=== PATIENT | male | born 1995 | race Caucasian/White ===

== ENCOUNTER 2021-02-16 06:49 | Observation (INO) ==
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
[~2021-02-16 06:49] MED LIST: ACETAMINOPHEN 500 MG TAB PO SCH; BUPIVACAINE 0.5 % 5 MG/1 ML PF 10ML VIAL ONE; FAMOTIDINE 20 MG TAB PO SCH; GABAPENTIN 900 MG DOSE PO SCH; LR 500ML BOLUS, THEN 15ML/HR IV SCH; LR 60ML/HR IV SCH; Scopolamine 1 MG TDSY TD SCH; TRANEXAMIC ACID 1,000 MG **IV Pre-op IV SCH
[2021-02-16] MEDS ORDERED: MIDAZOLAM HCL 1 MG/ML 2ML VIAL ONE (07:29)
[2021-02-16] MEDS ORDERED: PROPOFOL IV EMULSION 10 MG/ML 20 ML VIAL IV ONE ×3 (07:29→10:02)
[2021-02-16] MEDS ORDERED: MoRPHine SULFATE PF 1 MG/ML 10 ML AMP/VIAL ONE (07:29)
[2021-02-16 07:45] LABS: Partial Thromboplastin Time 27.6 Seconds (21.0-31.0)
--- NOTE | 2021-02-16 08:32 | History & Physical Bridge Note ---
Date of Service February 16, 2021 History & Physical Bridge Note I have examined the patient, reviewed the History & Physical and in the interval since the performance of the History & Physical I have noted the following changes of clinical significance: no changes noted
[2021-02-16] MEDS ORDERED: NALOXONE HCL 0.08 MG in SYRINGE 1.8 ML IV PRN (08:35)
[2021-02-16] MEDS ORDERED: PROMETHAZINE HCL 25 MG in SODIUM CHLORIDE 0.9% 50 ML IV PRN (08:35)
[2021-02-16] MEDS ORDERED: diphenhydrAMINE 50 MG/ML VIAL IV PRN (08:35)
[2021-02-16] MEDS ORDERED: HYDROmorphone INJ 0.5 MG/0.5 ML SYR IV PRN (08:35)
[2021-02-16] MEDS ORDERED: LACTATED RINGER'S 500 ML IV PRN (08:35)
[2021-02-16] MEDS ORDERED: NALOXONE HCL 0.4 MG/1 ML VIAL/CARP IV PRN ×2 (08:35→11:11)
[2021-02-16] MEDS ORDERED: NALOXONE HCL 1 MG in SODIUM CHLORIDE 0.9% 1000ML 1,000 ML IV PRN (08:35)
[2021-02-16] MEDS ORDERED: NALBUPHINE HCL INJ 10 MG/ML AMP IV PRN (08:35)
[2021-02-16] MEDS ORDERED: ONDANSETRON INJ 2 MG/ML 2 ML VIAL IV PRN ×2 (08:35→11:11)
[2021-02-16] MEDS ORDERED: MoRPHine SULFATE PF 1 MG/ML 10 ML AMP/VIAL INT SPINAL ONE (08:35)
[2021-02-16] MEDS ORDERED: ePHEDrine sulfate 50 MG/ML AMP IV PRN (08:35)
[2021-02-16] MEDS ORDERED: BUPIVACAINE/EPINEPHRINE 0.5% MPF 1:200,000 30 ML VIAL ONE (08:36)
[2021-02-16] MEDS ORDERED: SODIUM CHLORIDE 0.9% 1000ML 1,000 ML IV SCH ×2 (08:45→11:11)
[2021-02-16] MEDS ORDERED: NO NARCOTICS OR SEDATIVES SCH (08:45)
[2021-02-16] MEDS ORDERED: DC INTRASPINAL MORPHINE SCH (08:45)
[2021-02-16] MEDS ORDERED: ONDANSETRON INJ 2 MG/ML 2 ML VIAL ONE (09:21)
[2021-02-16] MEDS ORDERED: GLYCOPYRROLATE 0.2 MG/ML VIAL ONE (09:21)
--- NOTE | 2021-02-16 10:39 | Operative Report ---
Post Operative Report Pre & Post Diagnosis Operation Date: 02/16/21 08:50 Pre-Op Diagnosis: Right Hip Avascular Necrosis Post-Op Diagnosis: Right Hip Avascular Necrosis I identified the patient and participated in the time-out.: Yes Procedure Operation Date: 02/16/21 08:50 Actual Procedures p Right Total Hip Replacement--Uncemented(Right) - Abimael Fitch MD Surgeon Abimael Fitch MD Bailer Tenders Supervisor IRAIDA Taylor Estimated Blood Loss 300 Findings Consistent with Post-Op Diagnosis Operative findings revealed a large segment of vas necrosis of femoral head with collapse. There are subchondral fracture. Articular surface otherwise look pretty good. Moderate-sized joint effusion. Fluids 1300 cc. Specimens Right femoral head sent for pathology. Drains None Anesthesia Type Spinal MAC Complications none Disposition Accompanied Patient To Recovery: Yes Disposition: Recovery Room Indications Patient is a 26-year-old gentleman has had a several history of a increasing bilateral hip pain discomfort. He had known avascular necrosis likely related to some previous steroid use for medical reasons. He was doing fairly well for a while but over the past 6 months developed markedly increased pain discomfort right hip greater than left. X-rays show progressive collapse of the femoral head. He elected proceed with surgical treatment. Description of Procedure Operative implants consist of: 1 Biomet G7 size 52 mm acetabular shell. 2. Biomet size 6.5 cancellous acetabular screws 135 mm length and 1 of 30 mm length. 3. [place] hole warehouse logistics coordinator. 4. Highly cross-linked polyethylene liner with a 52 mm outer diameter and 36 mm inner diameter. 5. Kelly Corail size 10 KLA femoral stem. 6. +5/36 mm ceramic articular ball. The patient was taken to the operating, identified, placed on the operating table supine position protectors were properly padded. IV antibiotics tried by anesthesia team. Spinal anesthetic had been implemented holding area. James catheter was placed in sterile fashion. Patient then placed in the left lateral cubitus position. Next a roll was placed. A Stulberg hip positioner was used for positioning. The right hip and leg were then prepped and draped in usual sterile fashion. A posterior lateral approach to the right hip was then performed to a curvilinear incision centered over the greater trochanter. Sharp dissection carried through subcutaneous tissue down to level the IT band gluteal fascia the IT band gluteal fascia then incised longitudinally in line with skin incision. The underlying greater bursa was excised. The piriformis and external rotators were tagged and taken off the posterior aspect hip joint capsule. Great care was taken throughout the procedure protect the sciatic nerve at all times. The posterior capsulotomy was then performed leaving a large flap for later repair. Hip was internally rotated and dislocated. A femoral neck osteotomy cut was made with Final Cut 14 mm above the lesser trochanter. The head was removed and sent for pathology. The femur was retracted anteriorly. Attention drawn the acetabulum. The acetabular labrum was excised with the pulmonary fat was excised. Sequential reaming the acetabular was then performed again with size 43 and progressing up to a 51. I did reamed a little bit with a 52 reamer. A 52 mm Biomet G7 acetabular shell was then placed in about 40 degrees lateral opening and 20 degrees of anteversion. Was fixed with two 6.5 cancellous acetabular screws. Trial liner was placed. Attention drawn the femur. The proximal femur was entered with a cookie-cutter followed by canal finder. I then broached the femur beginning with size 8 and progressing up to 10. He had a very excellent cancellous bone bed so I elected not to broach any more. Likely could have a place as a slightly larger implant but felt it was likely fraught with difficulty due to his very supportive cancellous bone structure. Calcar reamer was then used to smooth off the calcar. Then trialed the hip and the +5 articular ball seem to fit most appropriately. Soft tissue tension was still just a little bit lax., But leg lengths seemed appropriate and may be little bit long on the side. I elect to place these implants. It was fully stable full extension and external rotation flexion to 9 degrees internal rotation over 50 degrees. All trial implants were removed. An apex hole warehouse logistics coordinator was placed. Highly cross-linked polyethylene liner was placed. A DePuy size 10 KLA femoral stem was impacted in position. +5/36 mm ceramic articular ball was placed. Hip was located once again found to be stable. Attention drawn toward closing. The wound was irrigated scope soft pulsatile lavage solution. We did inject locally with 50 cc of half percent Marcaine with epinephrine. The posterior capsule and external rotators then repaired through drill holes in the posterior trochanter as a single layer. The IT band gluteal fascia then closed with #1 PDS suture running fashion for subcutaneous tissue then closed with 2 layers the deep layer #1 Vicryl suture subcutaneous tissue with 2-0 Dexon suture in a buried interrupted fashion. Skin was closed skin lanette. Leg was then cleaned and dried and sterile dressing was Xeroform, 4 x 4's, ABD pad, foam tape was applied. Patient then transferred to the recovery room in stable condition. Patient tolerated procedure well and there were no complications. Kelton Taylor, my physician assistant broker, was present for the entire procedure. His assistance was essential and required for appropriate patient positioning, prepping and draping, surgical exposure, performing the technical details of the operation, placement the implants, closure of the wound, and placement of the sterile bandage. I attest to the content of the Intraoperative Record and any orders documented therein. Any exceptions are noted below.
--- NOTE | 2021-02-16 10:57 | XRay Report ---
XR hip 1V RT w pelvis HISTORY: 26 years-old Male IN PACU - A/P PELVIS and LATERAL HIP right hip total joint arthroplasty COMPARISON: Pelvis and hip radiographs 02/08/2021 TECHNIQUE: AP view of the pelvis with crosstable lateral view of the right hip FINDINGS: Right hip total joint arthroplasty. No acute fracture, malalignment or unexpected opaque foreign body . Lateral skin lanette with expected postoperative soft tissue swelling and deep tissue air. IMPRESSION: Right hip total joint arthroplasty with expected postoperative changes. ACT 112: Negative or not required by law. The above report was generated using voice recognition software. It may contain grammatical, syntax o r spelling errors. Electronically signed by: Mark Orosco M.D. 02/16/2021 10:56 AM
[2021-02-16] MEDS ORDERED: TAMSULOSIN HCL 0.4 MG CAP PO PRN (11:11)
[2021-02-16] MEDS ORDERED: MAGNESIUM HYDROXIDE SUSP 30 ML UDC PO PRN (11:11)
[2021-02-16] MEDS ORDERED: bisacodyL 10 MG SUPP PR PRN (11:11)
[2021-02-16] MEDS ORDERED: ALUMINUM/MAGNESIUM SUSP 30 ML UDC PO PRN (11:11)
[2021-02-16] MEDS ORDERED: ACETAMINOPHEN 325 MG TAB PO PRN (11:11)
[2021-02-16] MEDS ORDERED: ALBUTEROL HFA 8 GM INHALER INH PRN (11:22)
--- NOTE | 2021-02-16 11:39 | Anesthesiology Progress Note ---
Date of Service February 16, 2021 Anesthesia Post Procedure Vital Signs Vital Signs: Temp Pulse Pulse Resp BP BP Pulse Ox 02/16/21 11:16 16 100 02/16/21 11:11 37.0 C 68 20 120/76 99 02/16/21 10:55 36.7 C 84 17 131/65 93 02/16/21 10:45 91 H 21 113/72 91 02/16/21 10:35 93 H 15 113/68 96 02/16/21 10:25 36.4 C L 92 H 16 134/50 L 100 02/16/21 07:22 37.2 C 94 H 20 143/83 H 100 Pain Intensity Left Hip: Pain Intensity: 6 Transfer of Care Handoff Completed per policy Notes Mental Status: alert / awake / arousable and participated in evaluation Patient Amnestic to Procedure: Yes Nausea / Vomiting: adequately controlled Pain: adequately controlled Airway Patency, RR, SpO2: stable & adequate BP & HR: stable & adequate Hydration State: stable & adequate Anesthetic Complications: no major complications apparent and Pt Satisfied with anesthetic care
[2021-02-16] MEDS: KETOROLAC 30 MG/ML VIAL IV SCH ×2 (13:33→16:43)
[2021-02-16] MEDS ORDERED: TRANEXAMIC ACID / 0.7% NACL 1,000 MG/100 ML BAG IV SCH (16:29)
[2021-02-16] MEDS: ASCORBIC ACID 500 MG TAB PO SCH (16:40)
[2021-02-16] MEDS: Scopolamine CHECK PATCH PLACEMENT SCH (16:43)
[2021-02-16] MEDS: ceFAZolin 2000MG 2,000 MG/15 ML SYR IV SCH (16:43)
[2021-02-16] MEDS: DOCUSATE SODIUM 100 MG CAP PO SCH (19:28)
[2021-02-16] MEDS: ASPIRIN 81 MG ECTAB PO SCH (19:28)
[2021-02-16] MEDS ORDERED: SENNA 8.6 MG TAB PO SCH (21:00)
[2021-02-17] MEDS: ceFAZolin 2000MG 2,000 MG/15 ML SYR IV SCH (00:44)
[2021-02-17] MEDS: KETOROLAC 30 MG/ML VIAL IV SCH ×3 (00:44→12:38)
[2021-02-17] MEDS: Scopolamine CHECK PATCH PLACEMENT SCH ×2 (00:44→08:07)
[2021-02-17] MEDS ORDERED: HYDROmorphone INJ 0.5 MG/0.5 ML SYR IV PRN (02:35)
[2021-02-17] MEDS ORDERED: traMADol HCL 50 MG TABLET PO PRN (02:35)
[2021-02-17] MEDS ORDERED: METOCLOPRAMIDE HCL INJ 5 MG/ML 2 ML VIAL IV PRN (02:35)
[2021-02-17] MEDS ORDERED: diphenhydrAMINE Capsule 25 MG CAP PO PRN (02:35)
[2021-02-17 05:37] LABS: Basophils # (auto) 0.02 K/uL (0-0.2); Basophils % (auto) 0.2 %; Eosinophils # (auto) 0.14 K/uL (0-0.5); Eosinophils % (auto) 1.1 %; Hemoglobin 12.5 g/dL (14.0-18.0); Immature Granulocytes # (auto) 0.05 K/uL (0.00-0.02); Immature Granulocytes % (auto) 0.4 %; Lymphocytes # (auto) 2.91 K/uL (1.2-3.4); Mean Corpuscular Hemoglobin 29.1 pg (25-34); Mean Corpuscular Hgb Conc 33.8 g/dL (32-36); Mean Platelet Volume 11.2 fL (7.4-10.4); Monocytes # (auto) 1.34 K/uL (0.11-0.59); Monocytes % (auto) 10.1 %; Neutrophils # (auto) 8.77 K/uL (1.4-6.5); Neutrophils % (auto) 66.2 %; Platelet Count 225 K/uL (130-400); RDW Coefficient of Variation 13.3 % (11.5-14.5); RDW Standard Deviation 41.7 fL (36.4-46.3); White Blood Count 13.23 K/uL (4.8-10.8)
[2021-02-17 06:05] LABS: BUN Creatinine Ratio 14.6 (10-20); Calcium 8.8 mg/dl (8.5-10.1); Est GFR (African American) 119.9 ml/min; Est GFR (Non-African American) 103.4 ml/min; Potassium 4.3 mmol/L (3.5-5.1)
[2021-02-17] MEDS ORDERED: dexAMETHasone 10 MG in SYRINGE 0 ML IV SCH (08:00)
[2021-02-17] MEDS: ASPIRIN 81 MG ECTAB PO SCH (08:06)
[2021-02-17] MEDS: DOCUSATE SODIUM 100 MG CAP PO SCH (08:07)
[2021-02-17] MEDS: ASCORBIC ACID 500 MG TAB PO SCH (08:07)
[2021-02-17] MEDS ORDERED: MULTIVITAMIN TAB PO SCH (09:00)
--- NOTE | 2021-02-17 15:05 | Progress Notes ---
DATE OF SERVICE: 02/17/2021. SUBJECTIVE: A 26-year-old gentleman postop day 1 from right hip replacement done for avascular necro sis. He is doing well. He is walking in the hallways pretty well. His pain is controlled. No ches t pain or shortness of breath. Not feeling dizzy or lightheaded. OBJECTIVE: VITAL SIGNS: Temperature 37.8. Vital signs stable. GENERAL: A pleasant 26-year-old male. He is sitting up on bed and looks completely comfortable. LUNGS: Clear to auscultation. HEART: Regular rate and rhythm. ABDOMEN: Soft, nontender, nondistended. EXTREMITIES: Grossly neurovascularly intact except as follows. Examination of the right hip reveals leg lengths are equal. Dressing is clean, dry and intact. Thig h is soft and supple. He can dorsiflex and plantarflex his foot appropriately. He is neurologically intact. LABORATORY DATA: Hemoglobin is 12.5, hematocrit 37.0. Electrolytes are stable. ASSESSMENT: A 26-year-old male, postop day 1 from right hip replacement done for avascular necrosis. He is doing well. Pain is controlled. Hip is located. He is neurologically intact. PLAN: 1. DVT prophylaxis including thigh-high TEDs, SCDs, and aspirin twice a day. 2. PT, OT, weightbear as tolerated. Right total hip protocol. 3. Pain control, doing well with current pain regimen. 4. Disposition: Plan to discharge to home with some home health likely later today if does okay in therapy. Job ID: [id number]
--- NOTE | 2021-02-19 06:39 | Discharge Summary ---
Date of Service February 19, 2021 Discharge Data Procedures Performed Operation Date: 02/16/21 08:50 Actual Procedures p Right Total Hip Replacement--Uncemented(Right) - Abimael Fitch MD Hospital Course (1) Status post total hip replacement, right: This is a 26 year old patient admitted on 02/16/21 and underwent total hip arthroplasty. He tolerated the procedure well and there were no complications. Transferred to the PACU post op and later to the orthopedic floor for further care. He was given ancef for antibiotic prophylaxis. He was also given CHRISTIANO stockings, SCDs, and aspirin for DVT prophylaxis. Hemoglobin, hematocrit, and vital signs were monitored during his hospital stay and remained stable. Did not require any blood transfusions. There were no complications during his hospital stay. By post op day #1 the patient was tolerating a regular diet, pain was reasonably controlled with oral pain medicine, and he was participating in physical therapy. On post op day #1 the patient was discharged home and set up with home health care. He was given printed discharge instructions including prescriptions for extra strength tylenol, aspirin, and tramadol. Continue physical therapy, weight bearing as tolerated. Continue hip precautions. Continue CHRISTIANO stockings. Follow up approximately 2 weeks post op or sooner if there are problems or concerns. Coding Level of Care Code None Diagnoses Status post total hip replacement, right Z96.641
== END 2021-02-17 14:38 | disposition home health service (06) ==
LOC: 3E 06:49 → ASU 06:49